=== PATIENT | female | born 1995 | race Two or more races ===

== ENCOUNTER 2020-08-14 15:45 | Emergency (ER) | payer OTHER ==
[~2020-08-14] VITALS: Ht 157.5 cm; Wt 99.8 kg
--- NOTE | 2020-08-14 15:59 | NUR ---
Dr Elkins at the bedside for MSE.
[2020-08-14 16:03] VITALS: BP 129/80
--- NOTE | 2020-08-14 16:08 | NUR ---
Patient discharged to home in stable condition. Written and verbal after care instructions given. Patient verbalizes understanding of instructions. Stressed follow up or return to ER for worsening s/s.
== END 2020-08-14 16:08 | disposition home or self-care (01) ==
LOC: ER 15:48
DX: J02.9 Acute pharyngitis, unspecified (principal)
CPT/HCPCS: A4663

== ENCOUNTER 2021-04-29 17:27 | Emergency (ER) | payer OTHER ==
[~2021-04-29] VITALS: Ht 167.6 cm; Wt 106.6 kg
[2021-04-29] MEDS ORDERED: PRED50TA PO (17:53)
[2021-04-29] MEDS ORDERED: DIPH25CA83 PO (17:53)
[2021-04-29] MEDS ORDERED: FAMO40TA71 PO (17:53)
[2021-04-29] MEDS ORDERED: FAMOTIDINE 20 MG TABLET PO ONE (18:00)
[2021-04-29] MEDS ORDERED: predniSONE 10 MG TABLET PO ONE (18:00)
[2021-04-29] MEDS ORDERED: diphenhydrAMINE 50 MG CAPSULE PO ONE (18:00)
[2021-04-29] MEDS ORDERED: FAMOTIDINE 20 MG TABLET ONE (18:04)
[2021-04-29] MEDS ORDERED: predniSONE 50 MG TABLET ONE (18:04)
[2021-04-29] MEDS ORDERED: diphenhydrAMINE 50 MG CAPSULE ONE (18:04)
[2021-04-29] MEDS ORDERED: predniSONE 10 MG TABLET ONE (18:04)
== END 2021-04-29 18:09 | disposition home or self-care (01) ==
LOC: ER 17:28
DX: L50.9 Urticaria, unspecified (principal)
CPT/HCPCS: 99284; J7512 ×2; Q0163; A4663